=== PATIENT | female | born 1965 | race Caucasian/White ===

== ENCOUNTER 2024-10-29 09:55 | Outpatient (CLI) | payer BC ==
[2024-10-29 10:33] LABS: #Basophils 0.03 10x3/uL (0.0-0.2); #Eosinophils 0.08 10x3/uL (0.0-0.5); #Monocytes 0.42 10x3/uL (0.0-1.1); #Neutrophils 2.04 10x3/uL (1.5-8.4); %Basophils 0.5 % (0.0-2.0); %Eosinophils 1.3 % (0.0-6.0); %Lymphocytes 56.8 % (18.0-47.0); %Neutrophils 34.2 % (40.0-75.0); Hematocrit 34.7 % (34.9-44.5); Hemoglobin 10.9 g/dL (12.0-15.5); Mean Corpuscular HGB CONC 31.4 g/dL (32.0-36.0); Mean Corpuscular Hemoglobin 28.2 pg (27.0-33.0); Mean Corpuscular Volume 89.7 fL (81.6-98.3); Mean Platelet Volume 9.9 fL (7.4-10.4); Platelet Count 270 10x3/uL (150-450); RBC Distribution Width 14.3 % (11.5-14.5); Red Blood Cell (RBC) Count 3.87 10x6/uL (3.90-5.03)
[2024-10-29 10:46] LABS: Anion Gap 12 mmol/L (10-20); BUN (Urea Nitrogen) 13 mg/dL (9.8-20.1); Calc. Creatinine Clearance 0 mL/min (70-130); Calcium 9.2 mg/dL (7.8-10.44); Carbon Dioxide 26 mmol/L (22-29); Chloride 107 mmol/L (98-107); Estimated GFR 99; Glucose 72 mg/dL (70-105); Potassium 3.7 mmol/L (3.5-5.1); Sodium 141 mmol/L (136-145)
[2024-10-29 11:07] LABS: Ferritin 5.98 ng/mL (10-291)
[2024-10-29 15:04] LABS: Vitamin D, 25 Hydroxy 30.2 ng/ml (> 30.0)
== END 2024-10-29 09:56 | disposition home or self-care (01) ==
LOC: CSHLAB 09:55
PROVIDERS: ATTEND Surgery
DX: Z01.812 Encounter for preprocedural laboratory examination (principal); K64.9 Unspecified hemorrhoids
CPT/HCPCS: 80048; 82306; 82607; 82728; 84425; 85025

== ENCOUNTER 2024-11-02 05:49 | Day surgery (SDC) | payer BC ==
[2024-10-29 10:52] VITALS: BMI 27.8
[2024-11-02] MEDS ORDERED: Lidocaine 2% 6 ML (Jelly) SYR ONE (06:55)
[2024-11-02] MEDS ORDERED: Hydrocortisone Sod Succ/PF 100 mg/2 ml Vial ONE (07:09)
[2024-11-02] MEDS ORDERED: Lidocaine 1% PF 5 ML VIAL ONE (07:11)
[2024-11-02] MEDS ORDERED: PROPOFOL 40 ML ONE (07:11)
[2024-11-02] MEDS ORDERED: fentaNYL 50 mcg/mL 1 mL Vial ONE ×3 (07:11→08:44)
[2024-11-02] MEDS ORDERED: Rocuronium Bromide 10 MG/ML (10ML VIAL) ONE (07:11)
[2024-11-02] MEDS ORDERED: Lidocaine 4% PF 5 ML AMP ONE (07:13)
[2024-11-02] MEDS ORDERED: ceFOXitin 1 GM VIAL ONE (07:20)
[2024-11-02] MEDS ORDERED: Dexmedetomidine 200 MCG/2 ML VIAL ONE (07:37)
[2024-11-02] MEDS ORDERED: Ondansetron PF 4 MG/2 ML Vial ONE (07:57)
[2024-11-02] MEDS ORDERED: SUGAMMADEX SODIUM 200 MG/2 ML VIAL ONE (07:57)
[2024-11-02] MEDS ORDERED: Ketorolac Tromethamine 30 MG (1 mL) VIAL ONE (08:06)
[2024-11-02] MEDS ORDERED: HYDROcodone/Acetaminophen 5/325 mg Tablet ONE ×2 (09:09→09:41)
== END 2024-11-02 10:15 | disposition home or self-care (01) ==
LOC: CSHSDC 05:49
PROVIDERS: ATTEND Surgery
PROC: 06BY0ZC Excision of Hemorrhoidal Plexus, Open Approach (ICD-10-PCS; principal; 2024-11-02)
PROC: 069Y0ZZ Drainage of Lower Vein, Open Approach (ICD-10-PCS; principal; 2024-11-02)
DX: K64.8 Other hemorrhoids (principal); K64.4 Residual hemorrhoidal skin tags; F41.9 Anxiety disorder, unspecified; E03.9 Hypothyroidism, unspecified; M10.9 Gout, unspecified; Z79.899 Other long term (current) drug therapy; Z79.84 Long term (current) use of oral hypoglycemic drugs; Z96.642 Presence of left artificial hip joint; Z98.84 Bariatric surgery status; Z79.890 Hormone replacement therapy; Z88.0 Allergy status to penicillin; Z88.8 Allergy status to other drugs, medicaments and biological substances; Z91.018 Allergy to other foods; Z91.040 Latex allergy status
CPT/HCPCS: 88304; J0694; J1720; J1885; J2405; J2704; J3010

== ENCOUNTER 2025-09-05 07:24 | Outpatient (CLI) | payer BC | END 2025-09-05 07:25 | disposition home or self-care (01) | LOC: CSHCP 07:24 | PROVIDERS: ATTEND Family Medicine | DX: R06.02 Shortness of breath (principal) | CPT/HCPCS: 94060; 94664; 94726; 94729; 94760 ==